=== PATIENT | male | born 1990 | race Caucasian/White ===

== ENCOUNTER 2016-09-28 20:27 | Emergency (ER) | payer SELFPAY ==
[~2016-09-28] VITALS: Ht 180.3 cm; Wt 73.1 kg
[~2016-09-28 20:27] MED LIST: ANAPROX DS550 M1 PO; BACTRIM,SEPT1 TABLET PO; CIPRO250 MG PO; NAPROSYN500 MG PO; NOHOMEMEDS; TOBREX5 ML RIGHT EYE; VICODIN,LORT1 TABLET PO
[2016-09-28 21:10] LABS: HEMATOCRIT 45.7 % (38.0-50.0); MCH 30.5 PG (29.0-34.0); MCHC 33.3 G/DL (30.0-36.0); MCV 91.8 FL (86-99); MEAN PLAT.VOLUME 11.3 uM^3 (9.0-12.4); PLATELET COUNT 210 K/uL (156-360); RBC DIS.WIDTH-CV 12.9 % (11.8-14.6); RBC DIS.WIDTH-SD 42.3 % (39-53); RED BLOOD COUNT 4.98 M/uL (4.00-5.50)
[2016-09-28 21:19] LABS: CHLORIDE 107 mEq/L (99-109); POTASSIUM 4.2 mEq/L (3.7-5.4); SODIUM 141 mEq/L (136-147)
[2016-09-28 21:22] LABS: GLUCOSE 89 mg/dL (70-99)
[2016-09-28 21:23] LABS: ANION GAP 9 MEQ/L (2-14)
[2016-09-28 21:24] LABS: TOTAL BILIRUBIN 0.4 mg/dL (0.0-1.0)
[2016-09-28 21:25] LABS: ALKALINE PHOSPHATASE 47 IU/L (3-129); GFR ESTIMATE (CALCULATED) > 59 mL/min/
[2016-09-28 21:26] LABS: UREA NITROGEN (BUN) 7 mg/dL (9-23)
[2016-09-28 21:32] LABS: TROP-I INTERPRETATION NEGATIVE; TROPONIN-I < 0.01 ng/mL (0.0-0.30)
[2016-09-28] MEDS ORDERED: COLD-FLU M-SYM1 EACH PO (22:29)
[2016-09-28] MEDS ORDERED: FLEXERIL10 MG PO (22:43)
[2016-09-28] MEDS ORDERED: NAPROSYN500 MG PO (22:43)
[2016-09-28 22:56] VITALS: BP 122/84
== END 2016-09-28 22:56 | disposition home or self-care (01) ==
LOC: EME 20:27
DX: R07.89 Other chest pain (principal); F17.200 Nicotine dependence, unspecified, uncomplicated
CPT/HCPCS: 71020; 80048; 80053; 84484; 85027; 93005; 99281; 99284

== ENCOUNTER 2016-10-08 12:06 | Emergency (ER) | payer SELFPAY ==
[~2016-10-08] VITALS: Ht 180.3 cm; Wt 73.1 kg
[~2016-10-08 12:06] MED LIST changes: +COLD-FLU M-SYM1 EACH PO; +FLEXERIL10 MG PO
[2016-10-08] MEDS ORDERED: NAPROSYN500 MG PO (14:48)
[2016-10-08] MEDS ORDERED: FLEXERIL10 MG PO (14:48)
[2016-10-08] MEDS ORDERED: DELTASONE20 M1 PO (14:48)
[2016-10-08 15:01] VITALS: BP 128/89
== END 2016-10-08 15:02 | disposition home or self-care (01) ==
LOC: RME 12:06 → EME 12:06 → RME 15:02
DX: M25.512 Pain in left shoulder (principal); R20.0 Anesthesia of skin; F17.200 Nicotine dependence, unspecified, uncomplicated
CPT/HCPCS: 73030; 99281; 99284; J1885; J7512

== ENCOUNTER 2017-09-22 10:29 | Emergency (ER) | payer SELFPAY ==
[~2017-09-22] VITALS: Ht 180.3 cm; Wt 69.3 kg
[~2017-09-22 10:29] MED LIST changes: +DELTASONE20 M1 PO
[2017-09-22 11:06] VITALS: BP 138/60
== END 2017-09-22 14:13 | disposition left against medical advice (07) ==
LOC: EME 10:29
DX: S01.91XA Laceration without foreign body of unspecified part of head, initial encounter (principal); Z53.21 Procedure and treatment not carried out due to patient leaving prior to being seen by health care provider

== ENCOUNTER 2017-09-23 00:53 | Emergency (ER) | payer SELFPAY ==
[~2017-09-23] VITALS: Ht 180.3 cm; Wt 71.1 kg
[2017-09-23 04:27] VITALS: BP 119/59
== END 2017-09-23 04:28 | disposition home or self-care (01) ==
LOC: EME 00:53 → EXP 00:53
PROC: 0HQ0XZZ Repair Scalp Skin, External Approach (ICD-10-PCS; principal; 2017-09-23)
DX: S01.01XA Laceration without foreign body of scalp, initial encounter (principal); M54.2 Cervicalgia; W03.XXXA Other fall on same level due to collision with another person, initial encounter
CPT/HCPCS: 70450; 72125; 99281; 99284